=== PATIENT | female | born 1980 | race Caucasian/White ===

== ENCOUNTER 2018-04-02 20:10 | Inpatient (IN) | payer OTHER, MEDICAID ==
[2018-04-02] MEDS ORDERED: MAGNESIUM SULFATE 20 GM/500 ML 500 ML IV (20:29)
[2018-04-02] MEDS ORDERED: CA GLUCONATE (GM) 10% 10ML INJ IV (20:30)
[2018-04-02] MEDS ORDERED: ACETAMINOPHEN 650 MG SUPP PR (20:30)
[2018-04-02] MEDS: LACTATED RINGER'S 1,000 ML IV (21:05)
[2018-04-02] MEDS: MAGNESIUM SULFATE 20 GM/500 ML 500 ML IV (21:55)
[2018-04-02 22:13] LABS: ADD MAN DIFF? NO
[2018-04-02] MEDS: BETAMET NA PHOS/AC(6 MG/ML) 5ML INJ IM (22:15)
[2018-04-02 22:17] LABS: BASOPHILS % 0.3 % (0.0-2.0); EOSINOPHILS # 0.1 10^3/ul (0.0-0.5); EOSINOPHILS % 0.8 % (0.0-7.0); HEMATOCRIT 34.7 % (37.0-47.0); HEMOGLOBIN 12.2 g/dl (12.0-16.0); LYMPHOCYTES # 2.3 10^3/ul (0.8-2.9); LYMPHOCYTES % 32.2 % (15.0-51.0); MEAN CORPUSCULAR HGB CONC 35.2 g/dl (32.0-37.0); MEAN CORPUSCULAR VOLUME 91.1 fl (82.0-101.0); MEAN PLATELET VOLUME 9.7 fl (7.4-10.4); MONOCYTE # 0.4 10^3/ul (0.3-0.9); MONOCYTES % 5.2 % (0.0-11.0); NEUTROPHIL # 4.4 10^3/ul (1.6-7.5); NEUTROPHILS % 61.1 % (39.0-77.0); PLATELET COUNT 301 10^3/UL (140-415); RED BLOOD COUNT 3.81 10^6/ul (4.20-5.40); RED CELL DISTRIBUTION WIDTH 12.8 % (11.5-14.5)
[2018-04-02 22:17] LABS: WHITE BLOOD COUNT 7.3 10^3/ul (4.8-10.8)
[2018-04-02 22:22] LABS: ADD UMIC YES; UR ASCORBIC ACID NEGATIVE (NEGATIVE); UR BILIRUBIN (Dip) NEGATIVE (NEGATIVE); UR BLOOD (Dip) 1+ mg/dL (NEGATIVE); UR CLARITY SLIGHTLY CLOUDY (CLEAR); UR COLOR YELLOW (YELLOW); UR GLUCOSE (Dip) NEGATIVE (NEGATIVE); UR KETONES (Dip) 1+ mg/dL (NEGATIVE); UR LEUKOCYTE ESTERASE (Dip) NEGATIVE Leu/ul (NEGATIVE); UR MUCUS FEW /HPF (NONE SEEN); UR NITRITE (Dip) NEGATIVE (NEGATIVE); UR RBC 4 /HPF (0-5); UR SPECIFIC GRAVITY (Dip) 1.012 (1.003-1.030); UR SQUAMOUS EPITHELIAL CELL FEW /HPF (FEW); UR TOTAL PROTEIN (Dip) NEGATIVE (NEGATIVE); UR UROBILINOGEN (Dip) NEGATIVE (NEGATIVE); UR WBC 1 /HPF (0-5)
[2018-04-02 22:36] LABS: ALANINE AMINOTRANSFERASE 39 IU/L (13-69); ALBUMIN 2.7 g/dl (3.3-4.9); ALKALINE PHOSPHATASE 95 IU/L (42-121); ANION GAP 9 (8-16); ASPARTATE AMINO TRANSFERASE 41 IU/L (15-46); BILIRUBIN,INDIRECT 0.2 mg/dl (0-1.1); BILIRUBIN,TOTAL 0.2 mg/dl (0.2-1.3); BLOOD UREA NITROGEN 3 mg/dl (7-20); CALCIUM 7.8 mg/dl (8.4-10.2); CARBON DIOXIDE 21 mmol/L (21-31); CHLORIDE 112 mmol/L (97-110); CREATININE 0.34 mg/dl (0.44-1.00); GLUCOSE 89 mg/dl (70-220); POTASSIUM 3.5 mmol/L (3.5-5.1); SODIUM 138 mmol/L (135-144); TOTAL PROTEIN 5.7 g/dl (6.1-8.1); URIC ACID 4.3 mg/dl (3.1-7.9)
[2018-04-02 22:37] LABS: INR 0.84; PARTIAL THROMBOPLASTIN TIME 27.2 Sec (23.0-35.0); PROTIME 11.6 Sec (11.9-14.9); PT RATIO 0.9
[2018-04-02] MEDS: LABETALOL 100 MG TAB PO (23:48)
[2018-04-03] MEDS: LABETALOL HCL 20MG INJ IV
[2018-04-03 01:30] LABS: MAGNESIUM 4.1 mg/dl (1.7-2.5)
[2018-04-03 06:17] LABS: MAGNESIUM 4.8 mg/dl (1.7-2.5)
[2018-04-03] MEDS: MAGNESIUM SULFATE 20 GM/500 ML 500 ML IV ×2 (07:28→17:12)
[2018-04-03] MEDS ORDERED: FERROUS SULFATE (EC) 325 MG TAB PO (09:00)
[2018-04-03] MEDS: FERROUS SULFATE (EC) 325 MG TAB PO (09:07)
[2018-04-03] MEDS: PRENATAL VITAMIN PO (09:07)
[2018-04-03] MEDS: LABETALOL 100 MG TAB PO ×3 (09:08→21:25)
[2018-04-03] MEDS: DOCUSATE SODIUM 100 MG CAP PO (09:08)
[2018-04-03] MEDS: LACTATED RINGER'S 1,000 ML IV (09:57)
[2018-04-03 12:51] LABS: MAGNESIUM 5.3 mg/dl (1.7-2.5)
[2018-04-03 14:30] LABS: HEPATITIS B SURFACE ANTIGEN NEGATIVE (NEGATIVE)
[2018-04-03 14:39] LABS: HIV 1&2 ANTIBODY NEGATIVE (NEGATIVE)
[2018-04-03] MEDS: ACETAMINOPHEN 325 MG TAB PO (17:06)
[2018-04-03] MEDS: AL HYDROX/MG HYDROX/SIMETH 30 ML CUP PO ×2 (17:07→22:12)
[2018-04-03 19:40] LABS: BARBITURATES Negative (NEGATIVE); BENZODIAZEPINES Negative (NEGATIVE); CANNABINOIDS Negative (NEGATIVE); COCAINE Negative (NEGATIVE); OPIATES Negative (NEGATIVE)
[2018-04-03 19:54] LABS: AMPHETAMINE/METHAMPHETAMINE Positive (NEGATIVE)
[2018-04-03 20:37] LABS: RAPID PLASMA REAGIN NONREACTIVE (NR)
[2018-04-03] MEDS: BETAMET NA PHOS/AC(6 MG/ML) 5ML INJ IM (21:22)
[2018-04-04] MEDS: LACTATED RINGER'S 1,000 ML IV (00:12)
[2018-04-04] MEDS: ACETAMINOPHEN 325 MG TAB PO ×2 (01:20→16:00)
[2018-04-04 01:24] LABS: MAGNESIUM 5.2 mg/dl (1.7-2.5)
[2018-04-04] MEDS: MAGNESIUM SULFATE 20 GM/500 ML 500 ML IV (02:42)
[2018-04-04 06:41] LABS: MAGNESIUM 5.4 mg/dl (1.7-2.5)
[2018-04-04 07:59] LABS: COLLECTION PERIOD 24 hrs
[2018-04-04 08:38] LABS: COLLECTION PERIOD 24 hrs
[2018-04-04 08:39] LABS: CREATININE,URINE RANDOM 54.81 mg/dl (20-320); VOLUME 1700 ml/24hrs; VOLUME 1700 mls
[2018-04-04 08:51] LABS: ALANINE AMINOTRANSFERASE 31 IU/L (13-69); ALBUMIN 2.7 g/dl (3.3-4.9); ALBUMIN/GLOBULIN RATIO 0.96; ALKALINE PHOSPHATASE 93 IU/L (42-121); ANION GAP 8 (8-16); ASPARTATE AMINO TRANSFERASE 31 IU/L (15-46); BILIRUBIN,INDIRECT 0.1 mg/dl (0-1.1); BILIRUBIN,TOTAL 0.1 mg/dl (0.2-1.3); BLOOD UREA NITROGEN 7 mg/dl (7-20); CALCIUM 6.5 mg/dl (8.4-10.2); CARBON DIOXIDE 22 mmol/L (21-31); CHLORIDE 109 mmol/L (97-110); CREATININE 0.38 mg/dl (0.44-1.00); GLUCOSE 127 mg/dl (70-220); SODIUM 135 mmol/L (135-144); TOTAL PROTEIN 5.5 g/dl (6.1-8.1)
[2018-04-04 09:12] LABS: CREATININE CLEARANCE 170.3 mls/min (84.0-162.0); SCRET 0.38 mg/dl (0.44-1.00)
[2018-04-04] MEDS: DOCUSATE SODIUM 100 MG CAP PO (09:27)
[2018-04-04] MEDS: FERROUS SULFATE (EC) 325 MG TAB PO (09:27)
[2018-04-04] MEDS: LABETALOL 100 MG TAB PO ×2 (09:27→12:43)
[2018-04-04] MEDS: PRENATAL VITAMIN PO (09:27)
[2018-04-04] MEDS: GUAIFENESIN 20 MG/ML 5ML CUP PO (16:00)
[2018-04-04] MEDS: AL HYDROX/MG HYDROX/SIMETH 30 ML CUP PO (16:02)
[2018-04-04] MEDS ORDERED: LABETALOL 100 MG TAB PO (21:00)
[2018-04-05 10:52] LABS: RUBELLA ANTIBODY - IGM <20.00 AU/mL
[2018-04-05 11:37] LABS: RUBELLA ANTIBODY - IGG 1.87 index
== END 2018-04-04 18:30 | disposition left against medical advice (07) | DRG 832 ==
LOC: L-D 20:10
PROVIDERS: Obstetrics & Gynecology Obstetrics
DX: O10.012 Pre-existing essential hypertension complicating pregnancy, second trimester (principal); O99.322 Drug use complicating pregnancy, second trimester; F15.10 Other stimulant abuse, uncomplicated; O09.32 Supervision of pregnancy with insufficient antenatal care, second trimester; O09.522 Supervision of elderly multigravida, second trimester; Z3A.24 24 weeks gestation of pregnancy
CPT/HCPCS: 76815; 76817; 80053; 80307; 81001; 82575; 83735; 84156; 84560; 85025; 85610; 85730; 86592; 86703; 86762; 86850; 86900; 86901; 87340; 87591

== ENCOUNTER 2018-04-14 14:20 | Inpatient (IN) | payer OTHER, MEDICAID ==
[2018-04-14 15:42] LABS: ADD MAN DIFF? NO
[2018-04-14] MEDS: MAGNESIUM SULFATE 4 GM/100 ML 100 ML IV (15:43)
[2018-04-14] MEDS: LACTATED RINGER'S 500 ML IV (15:44)
[2018-04-14 15:47] LABS: BASOPHILS % 0.2 % (0.0-2.0); EOSINOPHILS # 0.1 10^3/ul (0.0-0.5); EOSINOPHILS % 0.4 % (0.0-7.0); HEMATOCRIT 34.1 % (37.0-47.0); HEMOGLOBIN 11.9 g/dl (12.0-16.0); LYMPHOCYTES # 2.7 10^3/ul (0.8-2.9); LYMPHOCYTES % 21.4 % (15.0-51.0); MEAN CORPUSCULAR HEMOGLOBIN 31.8 pg (29.0-33.0); MEAN CORPUSCULAR HGB CONC 34.9 g/dl (32.0-37.0); MEAN CORPUSCULAR VOLUME 91.2 fl (82.0-101.0); MEAN PLATELET VOLUME 9.5 fl (7.4-10.4); MONOCYTE # 0.5 10^3/ul (0.3-0.9); NEUTROPHIL # 9.3 10^3/ul (1.6-7.5); NEUTROPHILS % 73.4 % (39.0-77.0); PLATELET COUNT 312 10^3/UL (140-415); RED BLOOD COUNT 3.74 10^6/ul (4.20-5.40); RED CELL DISTRIBUTION WIDTH 13.2 % (11.5-14.5)
[2018-04-14 15:47] LABS: WHITE BLOOD COUNT 12.7 10^3/ul (4.8-10.8)
[2018-04-14 15:54] LABS: ADD UMIC YES; UR ASCORBIC ACID NEGATIVE (NEGATIVE); UR BACTERIA FEW /HPF (NONE SEEN); UR BILIRUBIN (Dip) NEGATIVE (NEGATIVE); UR BLOOD (Dip) 1+ mg/dL (NEGATIVE); UR CLARITY SLIGHTLY CLOUDY (CLEAR); UR COLOR YELLOW (YELLOW); UR GLUCOSE (Dip) NEGATIVE (NEGATIVE); UR KETONES (Dip) NEGATIVE (NEGATIVE); UR LEUKOCYTE ESTERASE (Dip) NEGATIVE Leu/ul (NEGATIVE); UR MUCUS FEW /HPF (NONE SEEN); UR NITRITE (Dip) NEGATIVE (NEGATIVE); UR RBC 7 /HPF (0-5); UR SPECIFIC GRAVITY (Dip) 1.012 (1.003-1.030); UR SQUAMOUS EPITHELIAL CELL FEW /HPF (FEW); UR TOTAL PROTEIN (Dip) 2+ mg/dl (NEGATIVE); UR UROBILINOGEN (Dip) NEGATIVE (NEGATIVE); UR WBC 2 /HPF (0-5)
[2018-04-14 15:58] LABS: INR 0.82; PROTIME 11.3 Sec (11.9-14.9); PT RATIO 0.9
[2018-04-14 15:59] LABS: PARTIAL THROMBOPLASTIN TIME 27.7 Sec (23.0-35.0)
[2018-04-14 16:06] LABS: ALANINE AMINOTRANSFERASE 49 IU/L (13-69); ALBUMIN 3.1 g/dl (3.3-4.9); ALKALINE PHOSPHATASE 92 IU/L (42-121); ANION GAP 7 (5-13); ASPARTATE AMINO TRANSFERASE 39 IU/L (15-46); BILIRUBIN,INDIRECT 0.3 mg/dl (0-1.1); BILIRUBIN,TOTAL 0.3 mg/dl (0.2-1.3); BLOOD UREA NITROGEN 7 mg/dl (7-20); CARBON DIOXIDE 22 mmol/L (21-31); CHLORIDE 106 mmol/L (97-110); CREATININE 0.46 mg/dl (0.44-1.00); GLUCOSE 87 mg/dl (70-220); SODIUM 135 mmol/L (135-144); TOTAL PROTEIN 6.2 g/dl (6.1-8.1)
[2018-04-14] MEDS: MAGNESIUM SULFATE 20 GM/500 ML 500 ML IV (16:12)
[2018-04-14 16:15] LABS: AMPHETAMINE/METHAMPHETAMINE Negative (NEGATIVE); BARBITURATES Negative (NEGATIVE); BENZODIAZEPINES Negative (NEGATIVE); CANNABINOIDS Negative (NEGATIVE); COCAINE Negative (NEGATIVE); OPIATES Negative (NEGATIVE)
[2018-04-14 17:38] LABS: URIC ACID 5.1 mg/dl (3.1-7.9)
[2018-04-14] MEDS: ACETAMINOPHEN 500 MG TAB PO (18:55)
[2018-04-14] MEDS: ONDANSETRON 4 MG INJ IV (18:56)
[2018-04-14] MEDS ORDERED: FAMOTIDINE 20 MG INJ (20:46)
[2018-04-14] MEDS: FAMOTIDINE 20 MG INJ IV (20:56)
[2018-04-14] MEDS: LACTATED RINGER'S 1,000 ML IV (20:57)
[2018-04-15 01:49] LABS: MAGNESIUM 5.4 mg/dl (1.7-2.5)
[2018-04-15] MEDS: LACTATED RINGER'S 1,000 ML IV ×2 (02:35→16:33)
[2018-04-15] MEDS: MAGNESIUM SULFATE 20 GM/500 ML 500 ML IV ×2 (02:37→13:27)
[2018-04-15] MEDS: ACETAMINOPHEN 500 MG TAB PO (03:10)
[2018-04-15] MEDS: LABETALOL HCL 20MG INJ IV (03:12)
[2018-04-15 06:25] LABS: MAGNESIUM 5.3 mg/dl (1.7-2.5)
[2018-04-15] MEDS: DIPHTH/TET/ACEL PERTUSS (ADULT) 0.5 ML VIAL IM* (06:29)
[2018-04-15 13:53] LABS: MAGNESIUM 5.3 mg/dl (1.7-2.5)
[2018-04-15] MEDS: LABETALOL 200 MG TAB PO ×2 (15:06→23:03)
[2018-04-15 15:22] LABS: COLLECTION PERIOD 24 hrs
[2018-04-15 15:35] LABS: CREATININE 0.49 mg/dl (0.44-1.00)
[2018-04-15 16:28] LABS: COLLECTION PERIOD 24 hrs; CREATININE CLEARANCE 200.8 mls/min (84.0-162.0); CREATININE,URINE RANDOM 34.55 mg/dl (20-320); SCRET 0.49 mg/dl (0.44-1.00); VOLUME 4100 ml/24hrs; VOLUME 4100 mls
[2018-04-15] MEDS: FAMOTIDINE 20 MG INJ IV ×2 (16:28→21:04)
[2018-04-15 16:29] LABS: 24HR URINE TOTAL PROTEIN > 600.0 mg/24hrs (42.0-225.0)
[2018-04-16] MEDS: LACTATED RINGER'S 1,000 ML IV ×4 (04:43→23:37)
[2018-04-16] MEDS: LABETALOL HCL 20MG INJ IV ×3 (07:30→17:36)
[2018-04-16] MEDS: LABETALOL 200 MG TAB PO ×2 (08:36→21:18)
[2018-04-16] MEDS: FAMOTIDINE 20 MG INJ IV ×2 (08:37→21:18)
[2018-04-16] MEDS ORDERED: LABETALOL HCL 20MG INJ (15:51)
[2018-04-16 17:22] LABS: ADD MAN DIFF? NO
[2018-04-16 17:24] LABS: WHITE BLOOD COUNT 8.9 10^3/ul (4.8-10.8)
[2018-04-16 17:24] LABS: BASOPHILS % 0.3 % (0.0-2.0); EOSINOPHILS # 0.1 10^3/ul (0.0-0.5); EOSINOPHILS % 1.2 % (0.0-7.0); HEMATOCRIT 33.4 % (37.0-47.0); HEMOGLOBIN 11.3 g/dl (12.0-16.0); LYMPHOCYTES # 3.2 10^3/ul (0.8-2.9); LYMPHOCYTES % 35.6 % (15.0-51.0); MEAN CORPUSCULAR HEMOGLOBIN 31.7 pg (29.0-33.0); MEAN CORPUSCULAR HGB CONC 33.8 g/dl (32.0-37.0); MEAN CORPUSCULAR VOLUME 93.8 fl (82.0-101.0); MEAN PLATELET VOLUME 9.7 fl (7.4-10.4); MONOCYTE # 0.6 10^3/ul (0.3-0.9); MONOCYTES % 6.5 % (0.0-11.0); PLATELET COUNT 272 10^3/UL (140-415); RED BLOOD COUNT 3.56 10^6/ul (4.20-5.40); RED CELL DISTRIBUTION WIDTH 13.4 % (11.5-14.5)
[2018-04-16 17:41] LABS: ALANINE AMINOTRANSFERASE 39 IU/L (13-69); ALBUMIN 2.5 g/dl (3.3-4.9); ALKALINE PHOSPHATASE 90 IU/L (42-121); ANION GAP 3 (5-13); ASPARTATE AMINO TRANSFERASE 34 IU/L (15-46); BILIRUBIN,INDIRECT 0.2 mg/dl (0-1.1); BILIRUBIN,TOTAL 0.2 mg/dl (0.2-1.3); BLOOD UREA NITROGEN 16 mg/dl (7-20); CALCIUM 8.6 mg/dl (8.4-10.2); CARBON DIOXIDE 25 mmol/L (21-31); CHLORIDE 106 mmol/L (97-110); CREATININE 0.51 mg/dl (0.44-1.00); GLUCOSE 107 mg/dl (70-220); POTASSIUM 4.2 mmol/L (3.5-5.1); SODIUM 134 mmol/L (135-144); TOTAL PROTEIN 5.6 g/dl (6.1-8.1)
[2018-04-16 17:41] LABS: URIC ACID 4.8 mg/dl (3.1-7.9)
[2018-04-16] MEDS: DIPHENHYDRAMINE 50 MG INJ IV (17:58)
[2018-04-16] MEDS ORDERED: LABETALOL 200 MG TAB PO (22:00)
[2018-04-16] MEDS: LABETALOL 100 MG TAB PO (22:40)
[2018-04-17] MEDS: ACETAMINOPHEN 500 MG TAB PO (01:11)
[2018-04-17] MEDS: LABETALOL 200 MG TAB PO ×3 (04:15→20:48)
[2018-04-17] MEDS: DIPHENHYDRAMINE 50 MG INJ IV (04:16)
[2018-04-17] MEDS: LACTATED RINGER'S 1,000 ML IV ×3 (04:43→23:00)
[2018-04-17] MEDS: hydrALAzine 20 MG INJ IV (04:57)
[2018-04-17] MEDS: LORAZEPAM 2 MG INJ IV ×2 (06:00→23:01)
[2018-04-17] MEDS: FAMOTIDINE 20 MG INJ IV ×2 (13:17→20:48)
[2018-04-18] MEDS: DIPHENHYDRAMINE 50 MG INJ IV ×2 (03:38→20:32)
[2018-04-18] MEDS: LABETALOL 200 MG TAB PO ×3 (05:41→22:12)
[2018-04-18] MEDS: LACTATED RINGER'S 1,000 ML IV (06:29)
[2018-04-18] MEDS ORDERED: OXYTOCIN 30 UNITS/LR 500 ML BAG IV ×2 (07:00)
[2018-04-18] MEDS: FAMOTIDINE 20 MG INJ IV ×2 (08:17→20:32)
[2018-04-18] MEDS ORDERED: LABETALOL 200 MG TAB GTB (09:00)
[2018-04-18] MEDS: MAGNESIUM SULFATE 4 GM/100 ML 100 ML IVPB (09:21)
[2018-04-18] MEDS: hydrALAzine 20 MG INJ IV ×3 (09:22→12:00)
[2018-04-18] MEDS ORDERED: CA GLUCONATE (GM) 10% 10ML INJ IV (09:30)
[2018-04-18] MEDS: AL HYDROX/MG HYDROX/SIMETH 30 ML CUP PO (09:40)
[2018-04-18] MEDS: MAGNESIUM SULFATE 20 GM/500 ML 500 ML IV ×2 (09:55→23:03)
[2018-04-18 09:56] LABS: ADD MAN DIFF? NO
[2018-04-18 10:05] LABS: WHITE BLOOD COUNT 11.2 10^3/ul (4.8-10.8)
[2018-04-18 10:05] LABS: BASOPHILS % 0.3 % (0.0-2.0); EOSINOPHILS # 0.1 10^3/ul (0.0-0.5); EOSINOPHILS % 1.2 % (0.0-7.0); HEMATOCRIT 33.8 % (37.0-47.0); HEMOGLOBIN 11.6 g/dl (12.0-16.0); LYMPHOCYTES # 2.6 10^3/ul (0.8-2.9); LYMPHOCYTES % 23.5 % (15.0-51.0); MEAN CORPUSCULAR HEMOGLOBIN 31.7 pg (29.0-33.0); MEAN CORPUSCULAR HGB CONC 34.3 g/dl (32.0-37.0); MEAN CORPUSCULAR VOLUME 92.3 fl (82.0-101.0); MEAN PLATELET VOLUME 9.6 fl (7.4-10.4); MONOCYTE # 0.5 10^3/ul (0.3-0.9); MONOCYTES % 4.6 % (0.0-11.0); NEUTROPHIL # 7.8 10^3/ul (1.6-7.5); NEUTROPHILS % 69.7 % (39.0-77.0); PLATELET COUNT 197 10^3/UL (140-415); RED BLOOD COUNT 3.66 10^6/ul (4.20-5.40); RED CELL DISTRIBUTION WIDTH 13.6 % (11.5-14.5)
[2018-04-18 10:30] LABS: URIC ACID 4.8 mg/dl (3.1-7.9)
[2018-04-18] MEDS ORDERED: ONDANSETRON 4 MG INJ IV (10:30)
[2018-04-18 10:31] LABS: ALANINE AMINOTRANSFERASE 122 IU/L (13-69); ALBUMIN 2.7 g/dl (3.3-4.9); ALBUMIN/GLOBULIN RATIO 0.93; ALKALINE PHOSPHATASE 97 IU/L (42-121); ANION GAP 8 (5-13); ASPARTATE AMINO TRANSFERASE 135 IU/L (15-46); BILIRUBIN,INDIRECT 0.5 mg/dl (0-1.1); BILIRUBIN,TOTAL 0.5 mg/dl (0.2-1.3); BLOOD UREA NITROGEN 9 mg/dl (7-20); CALCIUM 8.5 mg/dl (8.4-10.2); CARBON DIOXIDE 20 mmol/L (21-31); CHLORIDE 108 mmol/L (97-110); CREATININE 0.43 mg/dl (0.44-1.00); GLUCOSE 88 mg/dl (70-220); SODIUM 136 mmol/L (135-144); TOTAL PROTEIN 5.6 g/dl (6.1-8.1)
[2018-04-18 10:33] LABS: INR 0.82; PROTIME 11.3 Sec (11.9-14.9); PT RATIO 0.9
[2018-04-18 10:34] LABS: PARTIAL THROMBOPLASTIN TIME 26.4 Sec (23.0-35.0)
[2018-04-18] MEDS ORDERED: BETAMET NA PHOS/AC(6 MG/ML) 5ML INJ (11:37)
[2018-04-18] MEDS: BETAMET NA PHOS/AC(6 MG/ML) 5ML INJ IM (11:47)
[2018-04-18 13:23] LABS: ADD UMIC YES; UR ASCORBIC ACID NEGATIVE (NEGATIVE); UR BILIRUBIN (Dip) NEGATIVE (NEGATIVE); UR BLOOD (Dip) 1+ mg/dL (NEGATIVE); UR CLARITY SLIGHTLY CLOUDY (CLEAR); UR COLOR YELLOW (YELLOW); UR GLUCOSE (Dip) NEGATIVE (NEGATIVE); UR KETONES (Dip) NEGATIVE (NEGATIVE); UR LEUKOCYTE ESTERASE (Dip) NEGATIVE Leu/ul (NEGATIVE); UR NITRITE (Dip) NEGATIVE (NEGATIVE); UR RBC 6 /HPF (0-5); UR SPECIFIC GRAVITY (Dip) 1.012 (1.003-1.030); UR SQUAMOUS EPITHELIAL CELL FEW /HPF (FEW); UR TOTAL PROTEIN (Dip) 3+ mg/dl (NEGATIVE); UR UROBILINOGEN (Dip) NEGATIVE (NEGATIVE); UR WBC 4 /HPF (0-5)
[2018-04-18 13:58] LABS: AMPHETAMINE/METHAMPHETAMINE Negative (NEGATIVE); BARBITURATES Negative (NEGATIVE); BENZODIAZEPINES Negative (NEGATIVE); CANNABINOIDS Negative (NEGATIVE); COCAINE Negative (NEGATIVE); OPIATES Negative (NEGATIVE)
[2018-04-18] MEDS ORDERED: CEFAZOLIN 2 GM/50 ML (PMX) 50 ML IV (14:00)
[2018-04-18 14:35] LABS: MAGNESIUM 4.4 mg/dl (1.7-2.5)
[2018-04-18 14:58] LABS: HEPATITIS B SURFACE ANTIGEN NEGATIVE (NEGATIVE)
[2018-04-18] MEDS ORDERED: morphine SULFATE/PF (10 MG/10 ML) INJ (15:10)
[2018-04-18] MEDS ORDERED: OXYTOCIN 10 UNIT INJ (15:10)
[2018-04-18] MEDS ORDERED: BUPIVACAINE 0.75%/DEXT (SPINAL) 2 ML INJ (15:10)
[2018-04-18] MEDS ORDERED: PHENYLephrine (100 MCG/ML) 5ML SYG ×2 (15:31→15:49)
[2018-04-18] MEDS ORDERED: MIDAZOLAM 1 MG/ML 2 ML INJ (15:54)
[2018-04-18] MEDS ORDERED: PHENYLephrine 10 MG INJ (15:58)
[2018-04-18] MEDS ORDERED: morphine 2 MG INJ IV (16:30)
[2018-04-18] MEDS ORDERED: NALOXONE (0.4 MG/ML) INJ IV (16:30)
[2018-04-18 21:30] LABS: MAGNESIUM 5.6 mg/dl (1.7-2.5)
[2018-04-18] MEDS: ONDANSETRON 4 MG INJ IV (23:08)
[2018-04-18] MEDS: KETOROLAC 30 MG INJ IV (23:09)
[2018-04-19 03:49] LABS: MAGNESIUM 6.7 mg/dl (1.7-2.5)
[2018-04-19] MEDS: LACTATED RINGER'S 1,000 ML IV (06:54)
[2018-04-19] MEDS ORDERED: OXYTOCIN 30 UNITS/LR 500 ML IV ×2 (06:57→07:00)
[2018-04-19] MEDS ORDERED: LANOLIN 7 GM TUBE TOP (07:00)
[2018-04-19] MEDS ORDERED: MISOPROSTOL 200 MCG TAB PR (07:00)
[2018-04-19] MEDS ORDERED: METHYLERGONOVINE 0.2 MG INJ IM (07:00)
[2018-04-19] MEDS ORDERED: CARBOPROST 250 MCG INJ IM (07:00)
[2018-04-19 08:41] LABS: ADD MAN DIFF? NO
[2018-04-19 08:43] LABS: WHITE BLOOD COUNT 11.8 10^3/ul (4.8-10.8)
[2018-04-19 08:43] LABS: BASOPHILS % 0.1 % (0.0-2.0); HEMATOCRIT 30.6 % (37.0-47.0); HEMOGLOBIN 10.2 g/dl (12.0-16.0); LYMPHOCYTES # 1.6 10^3/ul (0.8-2.9); LYMPHOCYTES % 13.7 % (15.0-51.0); MEAN CORPUSCULAR HEMOGLOBIN 31.1 pg (29.0-33.0); MEAN CORPUSCULAR HGB CONC 33.3 g/dl (32.0-37.0); MEAN CORPUSCULAR VOLUME 93.3 fl (82.0-101.0); MEAN PLATELET VOLUME 9.9 fl (7.4-10.4); MONOCYTE # 0.3 10^3/ul (0.3-0.9); MONOCYTES % 2.5 % (0.0-11.0); NEUTROPHIL # 9.8 10^3/ul (1.6-7.5); NEUTROPHILS % 82.9 % (39.0-77.0); PLATELET COUNT 176 10^3/UL (140-415); RED BLOOD COUNT 3.28 10^6/ul (4.20-5.40); RED CELL DISTRIBUTION WIDTH 13.8 % (11.5-14.5)
[2018-04-19 09:06] LABS: MAGNESIUM 6.9 mg/dl (1.7-2.5)
[2018-04-19] MEDS: SENNA/DOCUSATE NA (8.6MG/50MG) TAB PO ×2 (09:45→20:52)
[2018-04-19] MEDS: LABETALOL 200 MG TAB PO ×3 (09:45→20:52)
[2018-04-19] MEDS: KETOROLAC 30 MG INJ IV ×2 (13:21→13:30)
[2018-04-19] MEDS: OXYCODONE/ACETAMINOPHEN (5/325) TAB PO ×2 (13:32→18:48)
[2018-04-19] MEDS: IBUPROFEN 600 MG TAB PO ×2 (18:06→23:32)
[2018-04-20] MEDS: OXYCODONE/ACETAMINOPHEN (5/325) TAB PO ×3 (01:03→20:47)
[2018-04-20] MEDS: IBUPROFEN 600 MG TAB PO ×4 (05:38→23:53)
[2018-04-20] MEDS: LABETALOL 200 MG TAB PO ×3 (08:29→20:48)
[2018-04-20] MEDS: SENNA/DOCUSATE NA (8.6MG/50MG) TAB PO ×2 (08:29→20:40)
[2018-04-20] MEDS ORDERED: ZOLPIDEM 5 MG TAB PO (10:00)
[2018-04-20] MEDS: FAMOTIDINE 20 MG TAB GTB ×2 (15:55→20:40)
[2018-04-21] MEDS: OXYCODONE/ACETAMINOPHEN (5/325) TAB PO ×3 (03:46→19:50)
[2018-04-21] MEDS: IBUPROFEN 600 MG TAB PO ×4 (06:03→23:28)
[2018-04-21] MEDS: LABETALOL 200 MG TAB PO ×3 (07:53→22:07)
[2018-04-21] MEDS ORDERED: MAGNESIUM SULFATE 4 GM/100 ML 100 ML (08:30)
[2018-04-21] MEDS ORDERED: CA GLUCONATE (GM) 10% 10ML INJ IV (08:30)
[2018-04-21] MEDS ORDERED: MAGNESIUM SULFATE 4 GM/100 ML 100 ML IVPB (08:30)
[2018-04-21] MEDS ORDERED: LABETALOL HCL 20MG INJ (08:30)
[2018-04-21] MEDS: MAGNESIUM SULFATE 4 GM/100 ML 100 ML IV (08:45)
[2018-04-21] MEDS: LABETALOL HCL 20MG INJ IV (08:53)
[2018-04-21] MEDS: MAGNESIUM SULFATE 20 GM/500 ML 500 ML IV ×2 (09:15→18:30)
[2018-04-21] MEDS: LACTATED RINGER'S 1,000 ML IV ×2 (09:15→22:08)
[2018-04-21] MEDS: FAMOTIDINE 20 MG TAB GTB ×2 (09:33→22:06)
[2018-04-21] MEDS: SENNA/DOCUSATE NA (8.6MG/50MG) TAB PO ×2 (09:33→22:06)
[2018-04-21] MEDS: NIFEdipine (XL) 60 MG TAB PO (09:33)
[2018-04-21 11:40] LABS: ADD MAN DIFF? NO
[2018-04-21 11:41] LABS: BASOPHILS % 0.3 % (0.0-2.0); EOSINOPHILS # 0.1 10^3/ul (0.0-0.5); EOSINOPHILS % 1.1 % (0.0-7.0); HEMATOCRIT 29.2 % (37.0-47.0); HEMOGLOBIN 9.7 g/dl (12.0-16.0); LYMPHOCYTES % 30.7 % (15.0-51.0); MEAN CORPUSCULAR HEMOGLOBIN 32.1 pg (29.0-33.0); MEAN CORPUSCULAR HGB CONC 33.2 g/dl (32.0-37.0); MEAN CORPUSCULAR VOLUME 96.7 fl (82.0-101.0); MEAN PLATELET VOLUME 10.1 fl (7.4-10.4); MONOCYTE # 0.6 10^3/ul (0.3-0.9); MONOCYTES % 6.1 % (0.0-11.0); NEUTROPHIL # 5.9 10^3/ul (1.6-7.5); NEUTROPHILS % 60.1 % (39.0-77.0); NUCLEATED RED BLOOD CELLS% 0.2 /100WBC (0.0-0.0); PLATELET COUNT 202 10^3/UL (140-415); RED BLOOD COUNT 3.02 10^6/ul (4.20-5.40); RED CELL DISTRIBUTION WIDTH 14.3 % (11.5-14.5)
[2018-04-21 11:41] LABS: WHITE BLOOD COUNT 9.8 10^3/ul (4.8-10.8)
[2018-04-21 12:12] LABS: ALANINE AMINOTRANSFERASE 69 IU/L (13-69); ALBUMIN 2.9 g/dl (3.3-4.9); ALKALINE PHOSPHATASE 94 IU/L (42-121); ASPARTATE AMINO TRANSFERASE 59 IU/L (15-46); BILIRUBIN,INDIRECT 0.2 mg/dl (0-1.1); BILIRUBIN,TOTAL 0.2 mg/dl (0.2-1.3); TOTAL PROTEIN 5.8 g/dl (6.1-8.1)
[2018-04-21 12:14] LABS: FIBRIN SPLIT PRODUCT >10 and <40 ug/ml (<10)
[2018-04-21 12:16] LABS: ALBUMIN 2.8 g/dl (3.3-4.9); ANION GAP 6 (5-13); BLOOD UREA NITROGEN 15 mg/dl (7-20); CALCIUM 8.2 mg/dl (8.4-10.2); CARBON DIOXIDE 20 mmol/L (21-31); CHLORIDE 107 mmol/L (97-110); CREATININE 0.48 mg/dl (0.44-1.00); GLUCOSE 100 mg/dl (70-220); LACTATE DEHYDROGENASE 599 IU/L (313-618); PHOSPHORUS 3.8 mg/dl (2.5-4.9); POTASSIUM 4.3 mmol/L (3.5-5.1); SODIUM 133 mmol/L (135-144)
[2018-04-21 12:18] LABS: MAGNESIUM 3.7 mg/dl (1.7-2.5)
[2018-04-21 12:34] LABS: AMPHETAMINE/METHAMPHETAMINE Negative (NEGATIVE); BARBITURATES Negative (NEGATIVE); BENZODIAZEPINES Negative (NEGATIVE); CANNABINOIDS Negative (NEGATIVE); COCAINE Negative (NEGATIVE); OPIATES Negative (NEGATIVE)
[2018-04-21] MEDS: DIPHTH/TET/ACEL PERTUSS (ADULT) 0.5 ML VIAL IM* (14:19)
[2018-04-21 18:44] LABS: MAGNESIUM 4.6 mg/dl (1.7-2.5)
[2018-04-21 21:52] LABS: RAPID PLASMA REAGIN NONREACTIVE (NR)
[2018-04-22 01:01] LABS: MAGNESIUM 4.9 mg/dl (1.7-2.5)
[2018-04-22] MEDS: OXYCODONE/ACETAMINOPHEN (5/325) TAB PO ×2 (02:53→21:55)
[2018-04-22] MEDS: MAGNESIUM SULFATE 20 GM/500 ML 500 ML IV (04:37)
[2018-04-22] MEDS: IBUPROFEN 600 MG TAB PO ×3 (05:39→18:37)
[2018-04-22] MEDS: LABETALOL 200 MG TAB PO ×3 (06:03→21:55)
[2018-04-22 08:31] LABS: MAGNESIUM 4.8 mg/dl (1.7-2.5)
[2018-04-22] MEDS: NIFEdipine (XL) 60 MG TAB PO (10:08)
[2018-04-22] MEDS: FAMOTIDINE 20 MG TAB GTB ×2 (10:08→21:55)
[2018-04-22] MEDS: SENNA/DOCUSATE NA (8.6MG/50MG) TAB PO ×2 (10:09→21:55)
[2018-04-23] MEDS: IBUPROFEN 600 MG TAB PO ×3 (00:11→13:15)
[2018-04-23] MEDS: LABETALOL 200 MG TAB PO ×2 (05:47→13:15)
[2018-04-23] MEDS: SENNA/DOCUSATE NA (8.6MG/50MG) TAB PO (08:38)
[2018-04-23] MEDS: FAMOTIDINE 20 MG TAB GTB (08:38)
[2018-04-23] MEDS: OXYCODONE/ACETAMINOPHEN (5/325) TAB PO (08:40)
[2018-04-23] MEDS: NIFEdipine (XL) 60 MG TAB PO (08:41)
== END 2018-04-23 16:23 | disposition home or self-care (01) | DRG 787 ==
LOC: OBT 14:20 → PP1 04-19 12:15 → L-D 14:20 → OBT 15:00 → L-D 15:00 → 6WM 04-18 17:54
PROC: 10D00Z1 Extraction of Products of Conception, Low, Open Approach (ICD-10-PCS; principal; 2018-04-18)
DX: O11.4 Pre-existing hypertension with pre-eclampsia, complicating childbirth (principal); O99.12 Other diseases of the blood and blood-forming organs and certain disorders involving the immune mechanism complicating childbirth; O13.4 Gestational [pregnancy-induced] hypertension without significant proteinuria, complicating childbirth; O75.89 Other specified complications of labor and delivery; R51 Headache; R10.13 Epigastric pain; D69.6 Thrombocytopenia, unspecified; O99.02 Anemia complicating childbirth; D64.9 Anemia, unspecified; R74.0 Nonspecific elevation of levels of transaminase and lactic acid dehydrogenase [LDH]; O99.324 Drug use complicating childbirth; F15.90 Other stimulant use, unspecified, uncomplicated; Z3A.26 26 weeks gestation of pregnancy; Z37.0 Single live birth; Z23 Encounter for immunization; Z87.891 Personal history of nicotine dependence
CPT/HCPCS: 71045; 76815; 80053; 80069; 80076; 80307; 81001; 82565; 82575; 83615; 83735; 84156; 84560; 85025; 85362; 85384; 85610; 85730; 86592; 86850; 86900; 86901; 87340; 88307; 90686; 90715; 93306; 99464

== ENCOUNTER 2018-04-29 20:50 | Emergency (ER) | payer OTHER, MEDICAID ==
[2018-04-29 22:14] LABS: ADD UMIC YES; UR ASCORBIC ACID 40 mg/dL (NEGATIVE); UR BILIRUBIN (Dip) NEGATIVE (NEGATIVE); UR BLOOD (Dip) NEGATIVE (NEGATIVE); UR CLARITY SLIGHTLY CLOUDY (CLEAR); UR COLOR YELLOW (YELLOW); UR GLUCOSE (Dip) NEGATIVE (NEGATIVE); UR KETONES (Dip) NEGATIVE (NEGATIVE); UR LEUKOCYTE ESTERASE (Dip) NEGATIVE Leu/ul (NEGATIVE); UR MUCUS FEW /HPF (NONE SEEN); UR NITRITE (Dip) NEGATIVE (NEGATIVE); UR RBC 2 /HPF (0-5); UR SPECIFIC GRAVITY (Dip) 1.028 (1.003-1.030); UR SQUAMOUS EPITHELIAL CELL FEW /HPF (FEW); UR TOTAL PROTEIN (Dip) 1+ mg/dl (NEGATIVE); UR UROBILINOGEN (Dip) NEGATIVE (NEGATIVE); UR WBC 1 /HPF (0-5)
[2018-04-29 22:19] LABS: ADD MAN DIFF? NO
[2018-04-29 22:27] LABS: BASOPHIL # 0.1 10^3/ul (0.0-0.1); BASOPHILS % 0.6 % (0.0-2.0); EOSINOPHILS # 0.2 10^3/ul (0.0-0.5); EOSINOPHILS % 2.5 % (0.0-7.0); HEMATOCRIT 34.4 % (37.0-47.0); HEMOGLOBIN 11.5 g/dl (12.0-16.0); LYMPHOCYTES # 3.3 10^3/ul (0.8-2.9); LYMPHOCYTES % 37.7 % (15.0-51.0); MEAN CORPUSCULAR HGB CONC 33.4 g/dl (32.0-37.0); MEAN CORPUSCULAR VOLUME 95.8 fl (82.0-101.0); MEAN PLATELET VOLUME 8.6 fl (7.4-10.4); MONOCYTE # 0.5 10^3/ul (0.3-0.9); MONOCYTES % 5.4 % (0.0-11.0); NEUTROPHIL # 4.6 10^3/ul (1.6-7.5); NEUTROPHILS % 53.1 % (39.0-77.0); PLATELET COUNT 464 10^3/UL (140-415); RED BLOOD COUNT 3.59 10^6/ul (4.20-5.40); RED CELL DISTRIBUTION WIDTH 14.4 % (11.5-14.5)
[2018-04-29 22:27] LABS: WHITE BLOOD COUNT 8.7 10^3/ul (4.8-10.8)
[2018-04-29 22:52] LABS: ALANINE AMINOTRANSFERASE 41 IU/L (13-69); ALBUMIN 4.1 g/dl (3.3-4.9); ALBUMIN/GLOBULIN RATIO 1.41; ALKALINE PHOSPHATASE 88 IU/L (42-121); ANION GAP 10 (5-13); ASPARTATE AMINO TRANSFERASE 27 IU/L (15-46); BLOOD UREA NITROGEN 22 mg/dl (7-20); CARBON DIOXIDE 20 mmol/L (21-31); CHLORIDE 109 mmol/L (97-110); CREATININE 0.65 mg/dl (0.44-1.00); Estimated GFR > 60 mL/min (>60); GLUCOSE 103 mg/dl (70-220); LIPASE 73 U/L (23-300); SODIUM 139 mmol/L (135-144)
== END 2018-04-30 01:20 | disposition home or self-care (01) ==
LOC: FTE 04-30 01:20
DX: O99.89 Other specified diseases and conditions complicating pregnancy, childbirth and the puerperium (principal); R10.84 Generalized abdominal pain
CPT/HCPCS: 36415; 76856; 80053; 81001; 81025; 83690; 84702; 85025; 99284-25

== ENCOUNTER 2018-05-01 13:08 | Emergency (ER) | payer OTHER, MEDICAID ==
[2018-05-01 13:54] LABS: ADD MAN DIFF? NO
[2018-05-01] MEDS: SOD CHLORIDE 0.9% 1,000 ML IV (13:56)
[2018-05-01 13:57] LABS: BASOPHILS % 0.5 % (0.0-2.0); EOSINOPHILS # 0.2 10^3/ul (0.0-0.5); EOSINOPHILS % 2.2 % (0.0-7.0); HEMATOCRIT 33.9 % (37.0-47.0); HEMOGLOBIN 11.5 g/dl (12.0-16.0); LYMPHOCYTES # 2.3 10^3/ul (0.8-2.9); LYMPHOCYTES % 31.3 % (15.0-51.0); MEAN CORPUSCULAR HEMOGLOBIN 31.7 pg (29.0-33.0); MEAN CORPUSCULAR HGB CONC 33.9 g/dl (32.0-37.0); MEAN CORPUSCULAR VOLUME 93.4 fl (82.0-101.0); MEAN PLATELET VOLUME 8.7 fl (7.4-10.4); MONOCYTE # 0.4 10^3/ul (0.3-0.9); MONOCYTES % 4.9 % (0.0-11.0); NEUTROPHIL # 4.4 10^3/ul (1.6-7.5); NEUTROPHILS % 60.8 % (39.0-77.0); PLATELET COUNT 450 10^3/UL (140-415); RED BLOOD COUNT 3.63 10^6/ul (4.20-5.40); RED CELL DISTRIBUTION WIDTH 13.9 % (11.5-14.5)
[2018-05-01 13:57] LABS: WHITE BLOOD COUNT 7.3 10^3/ul (4.8-10.8)
[2018-05-01 14:01] LABS: INR 0.88; PT RATIO 0.9
[2018-05-01 14:03] LABS: ANION GAP 8 (5-13); BLOOD UREA NITROGEN 15 mg/dl (7-20); CALCIUM 8.7 mg/dl (8.4-10.2); CARBON DIOXIDE 21 mmol/L (21-31); CHLORIDE 109 mmol/L (97-110); CREATININE 0.61 mg/dl (0.44-1.00); Estimated GFR > 60 mL/min (>60); GLUCOSE 103 mg/dl (70-220); POTASSIUM 3.9 mmol/L (3.5-5.1); SODIUM 138 mmol/L (135-144)
[2018-05-01 14:14] LABS: TROPONIN-I < 0.012 ng/ml (0.000-0.120)
[2018-05-01 14:32] LABS: ADD UMIC YES; UR ASCORBIC ACID NEGATIVE (NEGATIVE); UR BACTERIA FEW /HPF (NONE SEEN); UR BILIRUBIN (Dip) NEGATIVE (NEGATIVE); UR BLOOD (Dip) 1+ mg/dL (NEGATIVE); UR CLARITY SLIGHTLY CLOUDY (CLEAR); UR COLOR AMBER (YELLOW); UR GLUCOSE (Dip) NEGATIVE (NEGATIVE); UR KETONES (Dip) NEGATIVE (NEGATIVE); UR LEUKOCYTE ESTERASE (Dip) TRACE Leu/ul (NEGATIVE); UR MUCUS MODERATE /HPF (NONE SEEN); UR NITRITE (Dip) NEGATIVE (NEGATIVE); UR RBC 3 /HPF (0-5); UR SPECIFIC GRAVITY (Dip) 1.024 (1.003-1.030); UR SQUAMOUS EPITHELIAL CELL MODERATE /HPF (FEW); UR TOTAL PROTEIN (Dip) 1+ mg/dl (NEGATIVE); UR UROBILINOGEN (Dip) NEGATIVE (NEGATIVE); UR WBC 7 /HPF (0-5)
[2018-05-01] MEDS ORDERED: IOHEXOL 300MG/ML 150 ML BTL (14:37)
[2018-05-01] MEDS ORDERED: SOD CHLORIDE 0.9% 100 ML (14:37)
[2018-05-01] MEDS: CEFTRIAXONE 1 GM/50 ML (PMX) 50 ML IVPB (15:28)
[2018-05-01] MEDS: MECLIZINE 12.5 MG TAB PO (16:04)
== END 2018-05-01 17:00 | disposition home or self-care (01) ==
LOC: E/R 13:08
DX: H55.00 Unspecified nystagmus (principal); R11.0 Nausea; D64.9 Anemia, unspecified; D47.3 Essential (hemorrhagic) thrombocythemia; N30.00 Acute cystitis without hematuria; R55 Syncope and collapse
CPT/HCPCS: 36415; 70470; 71045; 80048; 81001; 84484; 85025; 85610; 93005; 96374; 99285-25

== ENCOUNTER 2018-05-13 15:30 | Emergency (ER) | payer OTHER, MEDICAID | END 2018-05-13 16:19 | disposition home or self-care (01) | LOC: FTE 15:30 | DX: Z48.01 Encounter for change or removal of surgical wound dressing (principal) | CPT/HCPCS: 99281 ==

== ENCOUNTER 2018-05-17 20:20 | Emergency (ER) | payer OTHER, MEDICAID ==
[2018-05-17] MEDS: NICARDipine HCL 30 MG CAPSULE PO (20:34)
[2018-05-17] MEDS: LORAZEPAM 1 MG TAB PO (20:34)
== END 2018-05-17 21:05 | disposition home or self-care (01) ==
LOC: E/R 21:05
DX: I10 Essential (primary) hypertension (principal); F41.0 Panic disorder [episodic paroxysmal anxiety]
CPT/HCPCS: 99283

== ENCOUNTER 2018-06-17 19:18 | Emergency (ER) | payer MEDICAID, OTHER ==
[2018-06-17] MEDS: KETOROLAC 30 MG INJ IM (20:57)
== END 2018-06-17 22:06 | disposition home or self-care (01) ==
LOC: FTE 19:18
DX: M25.561 Pain in right knee (principal)
CPT/HCPCS: 73562; 81025; 93971; 96372; 99285-25

== ENCOUNTER 2018-06-24 02:49 | Emergency (ER) | payer MEDICAID | END 2018-06-24 05:15 | disposition home or self-care (01) | LOC: FTE 02:49 | DX: M54.5 Low back pain (principal); I10 Essential (primary) hypertension | CPT/HCPCS: 72100; 81025; 99283-25 ==

== ENCOUNTER 2018-07-03 23:32 | Emergency (ER) | payer OTHER, MEDICAID ==
[2018-07-04] MEDS: DIAZEPAM 5 MG TAB PO (00:58)
[2018-07-04] MEDS: DEXAMETHASONE 10 MG/ML 1 ML INJ IM (00:58)
[2018-07-04] MEDS: KETOROLAC 60 MG INJ IM (01:04)
== END 2018-07-04 01:27 | disposition home or self-care (01) ==
LOC: FTE 23:32
DX: M54.42 Lumbago with sciatica, left side (principal)
CPT/HCPCS: 81025; 96372; 99284-25

== ENCOUNTER 2018-07-09 17:29 | Emergency (ER) | payer SELFPAY, OTHER | END 2018-07-09 19:30 | disposition left against medical advice (07) | LOC: FTE 17:29 | DX: Z53.21 Procedure and treatment not carried out due to patient leaving prior to being seen by health care provider (principal) ==

== ENCOUNTER 2018-11-24 14:47 | Emergency (ER) | payer OTHER ==
[2018-11-24] MEDS: IBUPROFEN 800 MG TAB PO (16:59)
== END 2018-11-24 17:45 | disposition home or self-care (01) ==
LOC: E/R 14:47
DX: R07.9 Chest pain, unspecified (principal)
CPT/HCPCS: 71045; 93005; 99284-25

== ENCOUNTER 2018-12-13 12:44 | Emergency (ER) | payer OTHER ==
[2018-12-13 14:14] LABS: URINE BLOOD (Dip) POC 2+ (NEGATIVE); URINE GLUCOSE (Dip) POC Negative (NEGATIVE); URINE KETONES (Dip) POC Negative (NEGATIVE); URINE LEUKOCYTE EST (Dip) POC Negative (NEGATIVE); URINE NITRITE (Dip) POC Negative (NEGATIVE); URINE TOTAL PROTEIN POC 1+ (NEGATIVE)
[2018-12-13 14:14] LABS: URINE PH (Dip) POC 5.5 (5.0-8.5)
[2018-12-13] MEDS: DEXAMETHASONE 10 MG/ML 1 ML INJ IM (14:24)
[2018-12-13] MEDS: KETOROLAC 15 MG INJ IM (14:25)
== END 2018-12-13 15:32 | disposition home or self-care (01) ==
LOC: FTE 12:44
DX: S39.012A Strain of muscle, fascia and tendon of lower back, initial encounter (principal); F17.210 Nicotine dependence, cigarettes, uncomplicated; X58.XXXA Exposure to other specified factors, initial encounter; Y92.9 Unspecified place or not applicable
CPT/HCPCS: 81003; 81025; 96372; 99284-25